=== PATIENT | male | born 1975 | race Caucasian/White ===

== ENCOUNTER → 2022-11-22 09:51 | Outpatient (CLI) | payer OTHER, SELFPAY ==
[2022-11-22 10:40] LABS: Alanine Aminotransferase 42 IU/L (<50); Albumin 4.3 g/dL (3.5-5.0); Albumin Globulin Ratio 1.1 (1.0-2.8); Alkaline Phosphatase 121 U/L (38-126); Aspartate Aminotransferase 35 IU/L (17-59); BUN Creatinine Ratio 12.6 (6-22); Bilirubin Total 0.5 mg/dL (0.2-1.3); Blood Urea Nitrogen 11 mg/dL (9-20); Calcium 8.8 mg/dL (8.4-10.2); Carbon Dioxide 27 mmol/L (22-32); Chloride 106 mmol/L (98-107); Cholesterol 180 mg/dL (140-199); Estimated Glomerular Filt Rate > 60 mL/min (>60); Globulin 3.8 g/dL (1.7-4.1); Glucose 95 mg/dL (70-100); HDL Cholesterol 29 mg/dL (40-60); HEMOLYSIS < 15 (0-50); LDL Cholesterol Calculated 112 mg/dL (<100); Potassium 4.5 mmol/L (3.4-5.1); Sodium 139 mmol/L (137-145); Total Protein 8.1 g/dL (6.3-8.2); Triglycerides 195 mg/dL (35-150)
== END ==
PROVIDERS: PCP Family Medicine; Referring Provider Family Medicine; Visit Provider Family Medicine
DX: E78.5 Hyperlipidemia, unspecified (principal); I10 Essential (primary) hypertension
CPT/HCPCS: 36415; 80053; 80061

== ENCOUNTER 2023-02-16 11:21 | Day surgery (SDC) | payer OTHER, SELFPAY ==
[2023-02-16] MEDS: LACTATED RINGERS 1,000 ML 42 ML IV (11:41)
[2023-02-16 11:42] VITALS: BP 154/91; PULSE 102; RESP 20; TEMP 36.8; O2SAT 97; BMI 38.0
--- NOTE | 2023-02-16 11:51 | P.HP_ITS ---
History of Present Illness History of Present Illness Date Patient Seen: 02/16/23 Time Patient Seen: 11:51 Chief complaint: Colonoscopy Narrative: Sohail is a 48-year-old man who is here for his first screening colonoscopy. No known family history of colon cancer. [facility] Medical History Generalized anxiety disorder Hyperlipidemia Hypertension PTSD (post-traumatic stress disorder) Meds Home Medications and Allergies Home Medications Medication Instructions Recorded Confirmed Type atorvastatin 20 mg tablet 20 mg PO DAILY 11/22/22 02/16/23 History bupropion HCl 150 mg 24 hr tablet, 150 mg PO DAILY 11/22/22 02/16/23 History extended release lisinopril 20 mg tablet 20 mg PO DAILY #0 tabs 11/22/22 02/16/23 History sertraline 100 mg tablet 150 mg PO DAILY 11/22/22 02/16/23 History Allergies Allergy/AdvReac Type Severity Reaction Status Date / Time No Known Drug Allergies Allergy Verified 02/16/23 11:38 Exam Const General: No acute distress Resp Effort & Inspection: normal respiratory effort Assessment & Plan Assessment and plan (1) Colon cancer screening: Status: Acute Plan We reviewed the risks and benefits of colonoscopy for colon cancer screening and he would like to proceed.
--- NOTE | 2023-02-16 13:01 | PM.OP.COLON ---
Operative Date/Time/Diagnoses Date of procedure: 02/16/23 Time of procedure: 13:01 Pre-op diagnosis: Colon cancer screening Post-op diagnosis: same Procedure & Clinicians Study performed: Colonoscopy Same procedure as scheduled: Yes Surgeon: Francisco Javier Galvin Procedure Notes Procedure in detail: Surgeon: Francisco Javier Galvin MD Anesthesia: Anthony Crowell CRNA Procedure: The patient was brought to the endoscopy suite, placed in left lateral decubitus position. The patient was connected to monitoring devices. A time-out was performed. Sedation was administered. Once the patient was adequately sedated, a digital rectal exam was performed and was normal. The scope was then inserted and advanced to the cecum where the appendiceal orifice was identified and photographed. The scope was then slowly withdrawn over greater than 6 minutes. The mucosa was thoroughly inspected. No abnormalities were found. The scope was retroflexed in the rectum. No abnormalities were seen. The scope was straightened and removed. The patient was awakened and brought to recovery. Scope withdrawal time: 9 minutes Sedation time: 13 minutes EBL: 0 Findings: Normal colon Post-procedure Recommendations: Colonoscopy in 10 years Disposition: PACU
[2023-02-16 13:03] VITALS: BP 121/82; PULSE 80; PULSE 88; RESP 16; TEMP 36.8; O2SAT 98
[2023-02-16 13:16] VITALS: BP 121/82; PULSE 80; RESP 16; TEMP 36.8; O2SAT 98
== END 2023-02-16 13:24 | disposition home or self-care (01) ==
PROVIDERS: PCP Family Medicine; Referring Provider Surgery; Visit Provider Surgery
PROC: 0DJD8ZZ Inspection of Lower Intestinal Tract, Via Natural or Artificial Opening Endoscopic (ICD-10-PCS; CPT 45378; principal; 2023-02-16 12:30)
DX: Z12.11 Encounter for screening for malignant neoplasm of colon (principal); I10 Essential (primary) hypertension; E78.5 Hyperlipidemia, unspecified
CPT/HCPCS: 45378; J2704

== ENCOUNTER 2023-08-16 01:55 | Emergency (ER) | payer OTHER, SELFPAY ==
[2023-08-16 02:07] VITALS: BP 130/74; PULSE 80; RESP 16; TEMP 36.6; O2SAT 96; BMI 37.3
[2023-08-16 03:25] VITALS: BP 137/74; PULSE 95; RESP 18; TEMP 36.9; O2SAT 96
--- NOTE | 2023-08-16 03:33 | ED_ITS ---
HPI - Recheck/Abnormal Lab/Rx General Chief Complaint: Recheck/Abnormal Lab/Rx Stated Complaint: fever, chills, covid + Time Seen by Provider: 08/16/23 03:24 Source: patient Mode of arrival: Family Vehicle History of Present Illness HPI narrative: 48-year-old man who tested positive for COVID a few hours ago. He has had 24 hours of sore throat cough chills and fever. Says that his insisted that he come to the emergency department to get started on anti COVID medications. He has had at least 3 vaccines he has not had COVID before. He has not short of breath he is not vomiting. Medical history significant for elevated cholesterol and hypertension. Related Data Home Medications Medication Instructions Recorded Confirmed bupropion HCl 150 mg 24 hr tablet, 150 mg PO DAILY 11/22/22 02/16/23 extended release sertraline 100 mg tablet 150 mg PO DAILY 11/22/22 02/16/23 Previous Rx's Medication Instructions Recorded atorvastatin 20 mg tablet 20 mg PO DAILY #90 tabs 04/03/23 lisinopril 20 mg tablet 20 mg PO DAILY #90 tabs 04/03/23 nirmatrelvir 300 mg (150 mg See Rx Instructions PO .COMPLEX 08/16/23 x2)-ritonavir 100 mg tablet,dose #30 ea pack (Paxlovid) Allergies Allergy/AdvReac Type Severity Reaction Status Date / Time No Known Drug Allergies Allergy Verified 02/16/23 11:38 Patient History Medical History Generalized anxiety disorder Hyperlipidemia Hypertension PTSD (post-traumatic stress disorder) Social History household members: spouse Smoking Status: Current every day smoker alcohol intake: former Smoking Status: Current every day smoker Substance Use Type: does not use Exam Initial Vital Signs Initial Vital Signs: Vital Signs Temperature 97.9 F 08/16/23 02:07 Pulse Rate 80 08/16/23 02:07 Respiratory Rate 16 08/16/23 02:07 Blood Pressure 130/74 08/16/23 02:07 Pulse Oximetry 96 08/16/23 02:07 Oxygen Delivery Method Room Air 08/16/23 02:07 Const General: No acute distress HENMT Head: normocephalic and atraumatic Neck Neck: supple Resp Effort & Inspection: normal respiratory effort, able to speak in complete sentences and no audible wheezes Cardio Rate: regular rate Skin General: dry skin Neuro General: patient alert and patient oriented x3 Course Orders Ordered: ED Orders 08/16/23 03:45 BMP [Basic Metabolic Panel] Stat Vital Signs Vital signs: Vital Signs - 8 hr 08/16/23 02:07 08/16/23 03:25 Temperature 97.9 F 98.5 F Pulse Rate 80 95 H Respiratory Rate 16 18 Blood Pressure 130/74 137/74 Pulse Oximetry 96 96 Oxygen Delivery Method Room Air Room Air MDM - Recheck/Abnormal Lab/Rx Lab Data Lab results narrative: Basic metabolic panel shows normal renal function 08/16/23 03:45 Labs: Lab Results 08/16/23 Range/Units 03:45 Sodium 136 L (137-145) mmol/L Potassium 3.4 (3.4-5.1) mmol/L Chloride 104 (98-107) mmol/L Carbon Dioxide 21 L (22-32) mmol/L BUN 12 (9-20) mg/dL Creatinine 0.78 (0.66-1.25) mg/dL Estimated GFR > 60 (>60) mL/min BUN/Creatinine Ratio 15.4 (6-22) Glucose 131 H (70-100) mg/dL Calcium 9.1 (8.4-10.2) mg/dL [facility] Narrative Medical decision making narrative: We discussed the current lack of evidence that COVID complications are prevented by Paxlovid. We also discussed that presently most people acutely infected with COVID do well and have mild illness. Potential for adverse outcomes related to PACs of it was also discussed, discussed the need to hold his atorvastatin and potential interactions with other medications that I will review. Patient states that he would like to get started on Paxlovid if possible. I will check his renal functions. I have reviewed interactions, atorvastatin will need to be held and bupropion has a potential week interaction and I do not anticipate the need to modify therapy for this. A 48-year-old man with acute coronavirus infection, he appears well certainly does not need to be hospitalized. We will discussed symptomatic treatment and at his request I am going to start him on Paxlovid Discharge Plan Departure Patient Disposition: Home Clinical Impression: COVID-19 virus infection Activity Restrictions/Additional Instructions: I sent a prescription for Paxlovid to your pharmacy. As we discussed, this is very important, you need to hold your atorvastatin while taking the Paxlovid for 5 days after completion of treatment with Paxlovid. You should stay home and away from other people while you are symptomatic. If you are having increasing shortness of breath uncontrolled vomiting or other acute symptoms return to the emergency department. Prescriptions: New Paxlovid 300 mg (150 mg x 2)-100 mg tablets,dose pack See Rx Instructions .ROUTE .COMPLEX Qty: 30 0RF Rx Instructions: take TWO 150 mg tablets of nirmatrelvir with ONE 100 mg tablet of ritonavir twice daily for 5 days No Action lisinopril 20 mg tablet 20 mg PO DAILY Qty: 90 1RF atorvastatin 20 mg tablet 20 mg PO DAILY Qty: 90 1RF sertraline 100 mg tablet 150 mg PO DAILY bupropion HCl 150 mg tablet extended release 24 hr 150 mg PO DAILY Referrals: Farhat Porter, [Primary Care Provider] - Stand Alone Forms: Patient Portal/API
[2023-08-16 03:34] VITALS: PULSE 90; O2SAT 96
[2023-08-16 03:48] VITALS: BP 126/75; PULSE 85; O2SAT 96
[2023-08-16 04:00] VITALS: BP 125/67; PULSE 93; O2SAT 94
[2023-08-16 04:17] LABS: BUN Creatinine Ratio 15.4 (6-22); Blood Urea Nitrogen 12 mg/dL (9-20); Calcium 9.1 mg/dL (8.4-10.2); Carbon Dioxide 21 mmol/L (22-32); Chloride 104 mmol/L (98-107); Estimated Glomerular Filt Rate > 60 mL/min (>60); Glucose 131 mg/dL (70-100); Potassium 3.4 mmol/L (3.4-5.1); Sodium 136 mmol/L (137-145)
[2023-08-16 04:30] VITALS: BP 102/55; PULSE 92; RESP 20; TEMP 36.9; O2SAT 97
[2023-08-16 08:15] LABS: HEMOLYSIS 24 (0-50)
== END 2023-08-16 04:55 | disposition home or self-care (01) ==
PROVIDERS: Emergency Provider Emergency Medicine; PCP Family Medicine
DX: U07.1 COVID-19 (principal)
CPT/HCPCS: 80048; 99281; 99283

== ENCOUNTER → 2023-10-06 09:07 | Outpatient (CLI) | payer OTHER, SELFPAY ==
[2023-10-06 10:19] LABS: Hemoglobin A1C% w Est Avg Glu 5.5 % (4.0-6.0)
[2023-10-06 10:35] LABS: Glucose 93 mg/dL (70-100)
== END ==
PROVIDERS: PCP Family Medicine; Referring Provider Family Medicine; Visit Provider Family Medicine
DX: R73.03 Prediabetes (principal)
CPT/HCPCS: 36415; 82947; 83036

== ENCOUNTER 2024-01-21 22:18 | Emergency (ER) | payer OTHER, SELFPAY ==
[2024-01-21 22:27] VITALS: BP 136/80; PULSE 80; RESP 18; TEMP 35.5; O2SAT 96; BMI 38.0
--- NOTE | 2024-01-21 23:30 | PC.NURSE ---
no change since triage
--- NOTE | 2024-01-22 00:03 | ED_ITS ---
HPI - Nausea/Vomiting/Diarrhea General Chief complaint: Nausea/Vomiting/Diarrhea Stated complaint: Abd pain/N/D Time Seen by Provider: 01/21/24 23:35 Source: patient Mode of arrival: Ambulatory History of Present Illness HPI Narrative: 48-year-old male presents with 1 day of nausea, vomiting, right-sided abdominal pain. Associated nonbloody diarrhea. Taking Pepto-Bismol at home without significant relief. Related Data Home Medications Medication Instructions Recorded Confirmed sertraline 100 mg tablet 100 mg PO DAILY 10/06/23 10/06/23 Previous Rx's Medication Instructions Recorded atorvastatin 20 mg tablet 20 mg PO DAILY #90 tabs 09/21/23 lisinopril 20 mg tablet 20 mg PO DAILY #90 tabs 09/21/23 bupropion HCl 300 mg 24 hr tablet, 300 mg PO DAILY #30 tabs 12/07/23 extended release ondansetron 4 mg disintegrating 4 mg PO Q8H PRN nausea and 01/22/24 tablet vomiting #30 tabs Allergies Allergy/AdvReac Type Severity Reaction Status Date / Time No Known Drug Allergies Allergy Verified 10/06/23 08:19 Review of Systems Review of Systems Narrative: See HPI Patient History Medical History Encounter for well adult exam with abnormal findings Pre-diabetes PTSD (post-traumatic stress disorder) Generalized anxiety disorder Hyperlipidemia Hypertension Social History household members: spouse Smoking Status: Current every day smoker alcohol intake: former Smoking Status: Current every day smoker Substance Use Type: does not use Exam Initial Vital Signs Initial Vital Signs: Vital Signs Temperature 96 F L 01/21/24 22:27 Pulse Rate 80 01/21/24 22:27 Respiratory Rate 18 01/21/24 22:27 Blood Pressure 136/80 01/21/24 22:27 Pulse Oximetry 96 01/21/24 22:27 Oxygen Delivery Method Room Air 01/21/24 22:27 Const: Awake, alert, no acute distress, nontoxic appearing Cardiac: regular rate, regular rhythm RESP: unlabored, clear bilaterally, no wheezing GI: Soft, right lower quadrant tenderness to deep palpation without rebound or guarding MSK: Atraumatic, full range of motion, pulses equal Skin: Warm, Dry, intact, no rashes Neuro: AO x3, CN II-XII grossly intact, moves all extremities Course Orders Ordered: ED Orders 01/22/24 00:02 CT abdomen pelvis w con Stat UA Complete [Urinalysis and Microscopic] Stat 01/22/24 00:20 CBC Auto Diff [Complete Blood Count AUTO DIFF] Stat CMP [Comprehensive Metabolic Panel] Stat Lactate (Lactic Acid) Stat Discontinued Medications Sodium Chloride (Normal Saline 0.9%) 1,000 mls @ 1,000 mls/hr IV BOLUS ONE Stop: 01/22/24 01:01 Last Admin: 01/22/24 00:56 Dose: 1,000 mls/hr Documented By: PING Morphine Sulfate (Morphine 4 Mg/Ml Inj) 4 mg IV NOW ONE Stop: 01/22/24 00:03 Last Admin: 01/22/24 00:56 Dose: 4 mg Documented By: PING Ondansetron HCl (Ondansetron 4 Mg/2 Ml Inj) 4 mg IV NOW ONE Stop: 01/22/24 00:03 Last Admin: 01/22/24 00:56 Dose: 4 mg Documented By: PING Vital Signs Vital signs: Vital Signs - 8 hr 01/21/24 22:27 Temperature 96 F L Pulse Rate 80 Respiratory Rate 18 Blood Pressure 136/80 Pulse Oximetry 96 Oxygen Delivery Method Room Air MDM - Nausea/Vomiting/Diarrhea Differential Diagnosis Differential diagnosis: Likely traveler's diarrhea, food poisoning and gastroenteritis Lab Data 01/22/24 00:20 01/22/24 00:20 Labs: Lab Results 01/22/24 Range/Units 00:20 WBC 10.2 (4.5-11.0) X10^3/uL RBC 4.25 L (4.5-5.9) X10^6/uL Hgb 12.7 L (13.5-17.5) g/dL Hct 37.3 L (41-53) % MCV 87.8 (80-100) fL MCH 29.9 (26-34) PG MCHC 34.1 (30-36) % RDW 14.1 (11.6-14.8) % Plt Count 266 (150-400) X10^3/uL Neut % (Auto) 69.2 (50-75) % Lymph % (Auto) 21.1 L (25-40) % [place] % (Auto) 6.7 (3-14) % Eos % (Auto) 2.5 (2-4) % Baso % (Auto) 0.5 (0-2) % Neut # (Auto) 7100 H (2114-7454) /uL Lymph # (Auto) 2200 (7613-6592) /uL [place] # (Auto) 700 (0-900) /uL Eos # (Auto) 300 (0-450) /uL Baso # (Auto) 100 (0-100) /uL Sodium 136 L (137-145) mmol/L Potassium 4.0 (3.4-5.1) mmol/L Chloride 108 H (98-107) mmol/L Carbon Dioxide 22 (22-32) mmol/L BUN 12 (9-20) mg/dL Creatinine 0.81 (0.66-1.25) mg/dL Estimated GFR > 60 (>60) mL/min BUN/Creatinine Ratio 14.8 (6-22) Glucose 103 H (70-100) mg/dL Lactate 0.7 (0.7-2.1) mmol/L Calcium 8.7 (8.4-10.2) mg/dL Total Bilirubin 0.6 (0.2-1.3) mg/dL AST 32 (17-59) IU/L ALT 35 (<50) IU/L Alkaline Phosphatase 123 (38-126) U/L Total Protein 7.6 (6.3-8.2) g/dL Albumin 4.3 (3.5-5.0) g/dL Globulin 3.3 (1.7-4.1) g/dL Albumin/Globulin Ratio 1.3 (1.0-2.8) Imaging Data CT scan - abdomen/pelvis: Radiologist's Impression: PROCEDURE: CT ABDOMEN PELVIS W CON INDICATIONS: RLQ ABD PAIN TECHNIQUE: After the administration of intravenous contrast, axial sections acquired from the lung bases to the pubic symphysis. Coronal and sagittal reformats were performed. For radiation dose reduction, the following was used: automated exposure control, adjustment of mA and/or kV according to patient size. COMPARISON: None. FINDINGS: Image quality: Diagnostic. Lower Chest: No significant findings. ABDOMEN: Liver: No solid mass. Gallbladder: No radiopaque gallstones or wall thickening. Biliary ducts: No biliary dilation. Pancreas: No ductal dilation. Spleen: Size is within normal limits. Adrenal Glands: No adrenal nodules. Kidneys and Ureters: Nonobstructing right inferior pole punctate calculus. No hydronephrosis. No solid mass. No complex renal cystic lesion which requires follow up. Stomach and Bowel: Normal colonic caliber, without significant wall thickening. No small bowel obstruction. Normal caliber appendix in right lower quadrant. There is mild bowel wall thickening and mild adjacent fat stranding of the terminal ileum. Peritoneum: Trace pelvic fluid. No free air. Ventral Wall: No significant ventral hernia. Abdominal Nodes: No retroperitoneal or mesenteric adenopathy by size criteria. Vessels: Aorta and inferior vena cava are normal in size. PELVIS: Pelvic Organs: Unremarkable. Bladder: No bladder wall thickening, accounting for underdistention. Pelvic Nodes: No enlarged lymph nodes. Miscellaneous: No inguinal hernias are seen. Bones: No aggressive osseous abnormality. Minimal degenerative changes of the visualized spine without acute vertebral body compression fracture. IMPRESSION: Terminal ileum mild bowel wall thickening and surrounding fat stranding and inflammation. Findings may represent enteritis. Approved by: Nhung Fox M.D.,Ph.D. on 01/22/2024 at 2:10 MDM Narrative Medical decision making narrative: Nontoxic patient with right lower quadrant abdominal pain with nausea and diarrhea. Abdomen is soft, no peritoneal signs, however patient was tender to palpation in the right lower quadrant. We will order laboratory work and CT imaging. Pain and nausea medications ordered. Laboratory work reviewed, WBC count 10.2, hemoglobin 12.7, platelets 266, sodium 136, potassium 4.0, creatinine 0.81, normal liver enzymes. CT of the abdomen and pelvis shows inflammation around the terminal ileum but no evidence of acute appendicitis. Noted that findings could represent enteritis. With normal labs, soft abdomen, and associated symptoms this is likely a gastroenteritis type process. Patient informed of lab and imaging findings, recommended avoiding Imodium if possible to allow diarrhea to run its course. Recommended maintaining fluid hydration at home. Tylenol and ibuprofen advised as needed for pain. Note for work provided. Discharge Plan Departure Patient Disposition: Home Clinical Impression: Gastroenteritis Instructions: DI for Viral Gastroenteritis -- Adult Activity Restrictions/Additional Instructions: Your CT scan showed that you have some inflammation on the right side of your small intestine, however there was no evidence of appendicitis or other dangerous infection at this time. This should limit itself within the next several days and fix itself on its own with time. Make sure to stay hydrated by drinking plenty of fluids. Prescriptions: New ondansetron 4 mg tablet,disintegrating 4 mg PO Q8H PRN (Reason: nausea and vomiting) Qty: 30 0RF No Action lisinopril 20 mg tablet 20 mg PO DAILY Qty: 90 1RF atorvastatin 20 mg tablet 20 mg PO DAILY Qty: 90 1RF bupropion HCl 300 mg tablet extended release 24 hr 300 mg PO DAILY Qty: 30 0RF sertraline 100 mg tablet 100 mg PO DAILY Referrals: Farhat Porter, [Primary Care Provider] - Stand Alone Forms: Patient Portal/API, Work Release Note
[2024-01-22 00:48] LABS: Lactate (Lactic Acid) 0.7 mmol/L (0.7-2.1)
[2024-01-22 00:49] LABS: Alanine Aminotransferase 35 IU/L (<50); Albumin 4.3 g/dL (3.5-5.0); Albumin Globulin Ratio 1.3 (1.0-2.8); Alkaline Phosphatase 123 U/L (38-126); Aspartate Aminotransferase 32 IU/L (17-59); BUN Creatinine Ratio 14.8 (6-22); Bilirubin Total 0.6 mg/dL (0.2-1.3); Blood Urea Nitrogen 12 mg/dL (9-20); Calcium 8.7 mg/dL (8.4-10.2); Carbon Dioxide 22 mmol/L (22-32); Chloride 108 mmol/L (98-107); Estimated Glomerular Filt Rate > 60 mL/min (>60); Globulin 3.3 g/dL (1.7-4.1); Glucose 103 mg/dL (70-100); HEMOLYSIS < 15 (0-50); Sodium 136 mmol/L (137-145); Total Protein 7.6 g/dL (6.3-8.2)
[2024-01-22 00:56] LABS: Add Manual Diff / Slide Review NO; Basophils Absolute Auto 100 /uL (0-100); Basophils Percent Auto 0.5 % (0-2); Eosinophils Absolute Auto 300 /uL (0-450); Eosinophils Percent Auto 2.5 % (2-4); Hematocrit 37.3 % (41-53); Hemoglobin 12.7 g/dL (13.5-17.5); Lymphocytes Absolute Auto 2200 /uL (1100-4500); Lymphocytes Percent Auto 21.1 % (25-40); Mean Corpuscular HGB Conc 34.1 % (30-36); Mean Corpuscular Hemoglobin 29.9 PG (26-34); Mean Corpuscular Volume 87.8 fL (80-100); Monocytes Absolute Auto 700 /uL (0-900); Monocytes Percent Auto 6.7 % (3-14); Neutrophils Absolute Auto 7100 /uL (1500-7000); Neutrophils Percent Auto 69.2 % (50-75); Platelet Count 266 X10^3/uL (150-400); Red Blood Cell Count 4.25 X10^6/uL (4.5-5.9); Red Cell Distribution Width 14.1 % (11.6-14.8); White Blood Cell Count 10.2 X10^3/uL (4.5-11.0)
[2024-01-22] MEDS: MORPHINE 4 MG/ML INJ IV (00:56)
[2024-01-22] MEDS: SODIUM CHLORIDE 0.9% 1,000 ML 1000 ML IV (00:56)
[2024-01-22] MEDS: ONDANSETRON 4 MG/2 ML INJ IV (00:56)
[2024-01-22 02:27] VITALS: BP 132/70; PULSE 74; RESP 18; O2SAT 100
== END 2024-01-22 02:28 | disposition home or self-care (01) ==
PROVIDERS: Emergency Provider Emergency Medicine; PCP Family Medicine
DX: K52.9 Noninfective gastroenteritis and colitis, unspecified (principal)
CPT/HCPCS: 36415; 74177; 80053; 83605; 85025; 96374; 96375; 99284; J2270; J2405

== ENCOUNTER → 2024-11-26 08:57 | Outpatient (CLI) | payer OTHER, SELFPAY ==
[2024-11-26 09:31] LABS: Add Manual Diff / Slide Review NO; Basophils Absolute Auto 0 /uL (0-100); Basophils Percent Auto 0.5 % (0-2); Eosinophils Absolute Auto 200 /uL (0-450); Eosinophils Percent Auto 3.1 % (2-4); Hematocrit 37.4 % (41-53); Hemoglobin 13.1 g/dL (13.5-17.5); Lymphocytes Absolute Auto 1900 /uL (1100-4500); Lymphocytes Percent Auto 26.9 % (25-40); Mean Corpuscular HGB Conc 34.9 % (30-36); Mean Corpuscular Hemoglobin 30.7 PG (26-34); Monocytes Absolute Auto 500 /uL (0-900); Neutrophils Absolute Auto 4400 /uL (1500-7000); Neutrophils Percent Auto 62.5 % (50-75); Platelet Count 293 X10^3/uL (150-400); Red Blood Cell Count 4.26 X10^6/uL (4.5-5.9); Red Cell Distribution Width 13.8 % (11.6-14.8)
[2024-11-26 09:42] LABS: Hemoglobin A1C% w Est Avg Glu 5.3 % (4.0-6.0)
[2024-11-26 10:02] LABS: HEMOLYSIS < 15 (0-50); Iron 97 ug/dL (49-181)
[2024-11-26 10:06] LABS: Alanine Aminotransferase 33 IU/L (<50); Albumin 4.6 g/dL (3.5-5.0); Albumin Globulin Ratio 1.4 (1.0-2.8); Alkaline Phosphatase 131 U/L (38-126); Aspartate Aminotransferase 31 IU/L (17-59); BUN Creatinine Ratio 13.5 (6-22); Bilirubin Total 0.7 mg/dL (0.2-1.3); Blood Urea Nitrogen 12 mg/dL (9-20); Calcium 9.4 mg/dL (8.4-10.2); Carbon Dioxide 24 mmol/L (22-32); Chloride 104 mmol/L (98-107); Estimated Glomerular Filt Rate > 60 mL/min (>60); Globulin 3.2 g/dL (1.7-4.1); Glucose 97 mg/dL (70-100); HEMOLYSIS < 15 (0-50); Potassium 4.7 mmol/L (3.4-5.1); Sodium 136 mmol/L (137-145); Total Protein 7.8 g/dL (6.3-8.2)
[2024-11-26 10:14] LABS: Percent Iron Saturation 27 % (20-50); Total Iron Binding Capacity 364 ug/dL (261-462); Transferrin 294 mg/dL (206-381)
[2024-11-26 10:51] LABS: Vitamin B12 257 pg/mL (239-931)
== END ==
PROVIDERS: PCP Family Medicine; Referring Provider Family Medicine; Visit Provider Family Medicine
DX: R73.03 Prediabetes (principal); F41.1 Generalized anxiety disorder; E78.5 Hyperlipidemia, unspecified; I10 Essential (primary) hypertension
CPT/HCPCS: 36415; 80053; 82607; 83036; 83540; 83550; 85025